=== PATIENT | male | born 1990 | race Hispanic/Latino ===

== ENCOUNTER → 2018-08-08 11:26 | Outpatient (CLI) | payer OTHER, SELFPAY ==
--- NOTE | 2018-08-08 | DI.RAD.S_ITS ---
PROCEDURE: XR KNEE STANDING BI INDICATIONS: DAPHNIE KNEE PAIN TECHNIQUE: AP standing view of bilateral knees. COMPARISON: None. FINDINGS: Bones: No acute fractures or dislocations. Patellar alignment is normal on the sunrise view. No suspicious bony lesions. Mild bilateral medial femorotibial compartment joint space narrowing is noted with weightbearing particularly in right knee. Soft tissues: No knee joint effusions. No suspicious soft tissue calcification. IMPRESSION: Right worse than left bilateral medial femorotibial compartment joint space narrowing. Dictated by: Manjit Putnam M.D. on 08/08/2018 at 13:08 Approved by: Manjit Putnam M.D. on 08/08/2018 at 13:25
--- NOTE | 2018-08-08 | DI.RAD.S_ITS ---
PROCEDURE: XR LUMBAR SPINE 2-3V INDICATIONS: PAIN IN SPINE TECHNIQUE: 3 views of the lumbar spine were acquired. COMPARISON: None. FINDINGS: Bones: 5 [id number] vertebrae are present. There is normal bony alignment. No vertebral body compression fractures. No suspicious bony lesions. Soft tissues: Overlying bowel gas pattern is normal. No suspicious soft tissue calcifications. IMPRESSION: Unremarkable radiographic examination of lumbar spine. Dictated by: Manjit Putnam M.D. on 08/08/2018 at 13:25 Approved by: Manjit Putnam M.D. on 08/08/2018 at 13:25
--- NOTE | 2018-08-08 | DI.RAD.S_ITS ---
PROCEDURE: XR SHOULDER RT MIN 2V INDICATIONS: PAIN IN RT SHOULDER TECHNIQUE: 3 views of the shoulder were acquired. COMPARISON: None. FINDINGS: Bones: No fractures or dislocations. Slight inferior subluxation of the acromion in relation to distal clavicle is seen, which may indicate low-grade acromioclavicular separation, suggest clinical correlation. No suspicious bony lesions. Visualized ribs appear intact. Soft tissues: No suspicious soft tissue calcifications. IMPRESSION: Possible low-grade right acromioclavicular subluxation, suggest clinical correlation. No fracture or dislocation. Dictated by: Manjit Putnam M.D. on 08/08/2018 at 13:25 Approved by: Manjit Putnam M.D. on 08/08/2018 at 13:28
--- NOTE | 2018-08-08 | DI.RAD.S_ITS ---
PROCEDURE: XR CERVICAL SPINE 2V OR 3V INDICATIONS: PAIN IN NECK TECHNIQUE: 3 view(s) of the cervical spine were acquired. COMPARISON: None. FINDINGS: Bones: No fractures or dislocations to the C7-T1 level. The The lateral masses of C1 appear intact on the odontoid view. No suspicious bony lesions. Soft tissues: No prevertebral soft tissue swelling. IMPRESSION: Unremarkable radiographic examination of cervical spine. Dictated by: Manjit Putnam M.D. on 08/08/2018 at 13:06 Approved by: Manjit Putnam M.D. on 08/08/2018 at 13:08
== END ==
PROVIDERS: PCP Acupuncturist; Visit Provider Acupuncturist
DX: M54.5 Low back pain (principal); M54.2 Cervicalgia; M25.511 Pain in right shoulder; M25.561 Pain in right knee
CPT/HCPCS: 72040; 72100; 73030; 73565

== ENCOUNTER → 2018-09-19 06:04 | Outpatient (CLI) | payer OTHER, SELFPAY ==
--- NOTE | 2018-09-19 | DI.MRI.S_ITS ---
PROCEDURE: MR CERVICAL SPINE WO CON INDICATIONS: NECK PAIN TECHNIQUE: Noncontrast sagittal T1 spin echo and T2 fast spin echo, sagittal STIR, foraminal oblique sagittal T2 fast spin echo, and axial gradient echo or T2 fast spin echo through the cervical spine. COMPARISON: [facility], CR, XR CERVICAL SPINE 2V OR 3V, 08/08/2018, 11:33. FINDINGS: Image quality: Excellent. Alignment and Curvature: There is normal bony alignment. Bone Marrow: Marrow demonstrates normal overall signal. Spinal Cord: Visualized spinal cord has normal size and signal. No cerebellar tonsillar herniation. Paraspinous Soft Tissues: No paravertebral masses. Prevertebral soft tissues are normal in thickness. C2-C3: Normal appearance. C3-C4: Loss of disc signal. No central stenosis. No neural foraminal narrowing. No neural impingement. C4-C5: Loss of this signal. No central stenosis. No neural foraminal narrowing. No neural impingement. C5-C6: Loss of this signal. Mild, diffuse disc bulge. Small left central/left foraminal disc protrusion. No central stenosis. Severe left neural foraminal narrowing secondary to disc protrusion with compression of the exiting left C6 nerve root. C6-C7: Normal appearance. C7-T1: Normal appearance. IMPRESSION: 1. Mild multilevel degenerative disc disease. 2. No central stenosis 3. Severe left C5-C6 neural foraminal narrowing. 4. C5-C6 left central/left foraminal disc protrusion which causes severe left neural foraminal narrowing and compresses the exiting left C6 nerve root. Please correlate with clinical data. Dictated by: Danielle Street MD, PhD on 09/19/2018 at 11:39 Approved by: Danielle Street MD, PhD on 09/19/2018 at 11:48
== END ==
PROVIDERS: PCP Acupuncturist; Visit Provider Acupuncturist
DX: M50.31 Other cervical disc degeneration, high cervical region (principal); M48.02 Spinal stenosis, cervical region; M50.222 Other cervical disc displacement at C5-C6 level
CPT/HCPCS: 72141

== ENCOUNTER → 2018-11-28 09:13 | Outpatient (CLI) | payer OTHER, SELFPAY ==
--- NOTE | 2018-11-28 | DI.MRI.S_ITS ---
PROCEDURE: MR LUMBAR SPINE WO CON INDICATIONS: Low back and bilateral hip pain TECHNIQUE: Noncontrast sagittal T1 spin echo and T2 fast echo, sagittal STIR, axial T1 and T2 fast spin echo through the lumbar spine. In cases with scoliosis, additional coronal T2 fast spin echo may be performed. COMPARISON: [facility], CR, XR LUMBAR SPINE 2-3V, 08/08/2018, 11:33. FINDINGS: Image quality: Excellent. Alignment and Curvature: There is normal bony alignment. 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 There is a left L5-S1 pseudarthrosis. 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 No acute vertebral body compression fractures. Spinal Cord: Conus medullaris terminates at the T12 level. Visualized cord demonstrates normal signal and size. Paraspinous Soft Tissues: No paravertebral masses. L1-L2: Normal appearance. L2-L3: Normal appearance. L3-L4: Normal appearance. L4-L5: Normal appearance. L5-S1: Normal appearance. IMPRESSION: 1. 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 Subchondral reactive noted between the left L5-S1 pseudarthrosis which can be associated with Bertolotti's syndrome. 2. Disc and facets are normal in appearance. 3. No central stenosis 4. No neural foraminal narrowing. 5. No neural compression. Dictated by: Danielle Street MD, PhD on 11/28/2018 at 12:59 Approved by: Danielle Street MD, PhD on 11/28/2018 at 13:07
== END ==
PROVIDERS: PCP Nurse Practitioner Gerontology; Visit Provider Acupuncturist
DX: M54.5 Low back pain (principal); Q76.49 Other congenital malformations of spine, not associated with scoliosis; M25.552 Pain in left hip; M25.551 Pain in right hip
CPT/HCPCS: 72148

== ENCOUNTER → 2018-12-04 20:23 | Outpatient (CLI) | payer OTHER, SELFPAY ==
--- NOTE | 2018-12-04 | DI.MRI.S_ITS ---
PROCEDURE: MR KNEE LT WO CON INDICATIONS: UNSPECIFIED INTERNAL DERANGEMENT OF LEFT KNEE TECHNIQUE: Noncontrast sagittal PD fast spin echo and T2 fast spin echo with fat saturation, sagittal 3-D FLASH with fat saturation; coronal T1 spin echo and PD fast spin echo with fat saturation, and axial PD fast spin echo with fat saturation through the knee. COMPARISON: [facility] [place], CR, XR KNEE ARTHRITIC SERIES BI, 12/01/2018, 15:10. FINDINGS: Image quality: Excellent. Menisci: There is linear oblique high T2 signal intensity traversing the posterior horn medial meniscus, demonstrating inferior articular surface extension, indicating oblique tearing. Lateral meniscus is intact. Cruciate ligaments: The anterior and posterior cruciate ligaments appear intact. Medial structures: The medial collateral ligament appears intact. Visualized portions of the pes anserinus tendons appear normal. No abnormal bursal fluid. Lateral structures: The lateral collateral ligament, long and short heads of the biceps femoris tendon appear intact. The popliteus tendon appears normal. Iliotibial band appears normal. Anterior structures: The quadriceps and patellar tendons appear intact. Mild lateral patellar subluxation. No femoral trochlear dysplasia or ventral trochlear prominence. Moderate edema in the superolateral aspect of the infrapatellar fat pad. Bones and cartilage: No bone marrow contusions or fractures. The there is mild diffuse articular cartilage loss overlying the weightbearing aspects of the medial and lateral compartments. There are a few small regions of high-grade articular cartilage loss overlying the medial and lateral patellar facets as well as the patellar apex, measuring roughly 2 mm. Joint space: There is physiologic knee joint fluid. Small Foote's cyst. Normal appearing synovial plicae are incidentally noted. IMPRESSION: 1. Medial meniscal tearing. 2. Small Foote's cyst. 3. Tricompartmental articular cartilage loss. 4. Findings consistent with lateral patellofemoral friction syndrome in the appropriate clinical setting. Dictated by: Raj Polanco M.D. on 12/05/2018 at 9:30 Approved by: Raj Polanco M.D. on 12/05/2018 at 9:39
== END ==
PROVIDERS: PCP Nurse Practitioner Gerontology; Visit Provider Orthopaedic Surgery
DX: S83.242A Other tear of medial meniscus, current injury, left knee, initial encounter (principal); M71.22 Synovial cyst of popliteal space [Baker], left knee
CPT/HCPCS: 73721

== ENCOUNTER → 2020-04-22 19:02 | Outpatient (CLI) | payer OTHER, SELFPAY ==
--- NOTE | 2020-04-22 19:04 | DI.MRI.S_ITS ---
PROCEDURE: MR CERVICAL SPINE WO CON INDICATIONS: CERVICALGIA TECHNIQUE: Noncontrast sagittal T1 spin echo and T2 fast spin echo, sagittal STIR, foraminal oblique sagittal T2 fast spin echo, and axial gradient echo or T2 fast spin echo through the cervical spine. COMPARISON: [facility], MR, MR CERVICAL SPINE WO CON, 09/19/2018, 6:40. FINDINGS: Image quality: Excellent. Alignment and Curvature: There is normal bony alignment. Bone Marrow: Marrow demonstrates normal overall signal. Spinal Cord: Visualized spinal cord has normal size and signal. No cerebellar tonsillar herniation. Paraspinous Soft Tissues: No paravertebral masses. Prevertebral soft tissues are normal in thickness. C2-C3: No spinal canal or neural foraminal stenosis. C3-C4: No spinal canal or neural foraminal stenosis. C4-C5: No spinal canal or neural foraminal stenosis. C5-C6: Facet and uncovertebral hypertrophy produce mild bilateral neural foraminal narrowing. No spinal canal stenosis. C6-C7: No spinal canal or neural foraminal stenosis. C7-T1: No spinal canal or neural foraminal stenosis. IMPRESSION: Mild bilateral neural foraminal narrowing at C5-C6, slightly progressed when compared to the 2019 exam. Dictated by: Jonny Persaud M.D. on 04/22/2020 at 19:56 Approved by: Jonny Persaud M.D. on 04/22/2020 at 19:58
== END ==
PROVIDERS: PCP Nurse Practitioner Gerontology; Referring Provider Acupuncturist; Visit Provider Acupuncturist
DX: M54.2 Cervicalgia (principal); M48.02 Spinal stenosis, cervical region
CPT/HCPCS: 72141